=== PATIENT | female | born 1995 | race Caucasian/White ===

== ENCOUNTER 2018-07-26 22:51 | Emergency (ER) | payer SELFPAY, MEDICAID ==
[2018-07-27] MEDS: KETOROLAC 60 MG INJ IM (01:10)
== END 2018-07-27 03:31 | disposition home or self-care (01) ==
LOC: FTE 22:51
DX: S29.011A Strain of muscle and tendon of front wall of thorax, initial encounter (principal); X58.XXXA Exposure to other specified factors, initial encounter; Y92.89 Other specified places as the place of occurrence of the external cause
CPT/HCPCS: 71046; 81025; 96372; 99284-25